=== PATIENT | male | born 1945 | race Caucasian/White ===

== ENCOUNTER 2022-01-29 04:23 | Day surgery (SDC) | payer OTHER ==
[2022-01-28 10:25] VITALS: BMI 26.6
[2022-01-29] MEDS ORDERED: LIDOCAINE HCL 2% 100 MG/5 ML DISP.SYRIN ONE (11:32)
[2022-01-29] MEDS ORDERED: KETOROLAC TROMETHAMINE 30 MG/1 ML VIAL ONE (11:32)
[2022-01-29] MEDS ORDERED: DEXAMETHASONE SOD PHOSPHATE 4 MG/1 ML VIAL ONE (11:32)
[2022-01-29] MEDS ORDERED: PROPOFOL 20 ML ONE (11:33)
[2022-01-29] MEDS ORDERED: MIDAZOLAM HCL 2 MG/2 ML SINGLE DOSE VIAL ONE (11:33)
[2022-01-29] MEDS ORDERED: ceFAZolin SODIUM 1 GM VIAL IVPB ONE (11:55)
[2022-01-29] MEDS ORDERED: BACITRACIN 15 GM TUBE TOPICAL OINTMENT TP ONE (12:18)
[2022-01-29] MEDS ORDERED: ONDANSETRON 4 MG/2 ML VIAL IVPUSH PRN (13:15)
[2022-01-29] MEDS ORDERED: oxyCODONE HCL 5 MG TABLET PO PRN ×2 (13:15)
[2022-01-29] MEDS ORDERED: PROMETHAZINE HCL 25 MG/1 ML VIAL IVPUSH PRN (13:15)
[2022-01-29] MEDS ORDERED: LACTATED RINGERS SOLUTION 1,000 ML IV SCH (13:15)
[2022-01-29] MEDS ORDERED: FENTANYL CITRATE/PF 50 MCG/ML VIAL ONE (13:59)
[2022-01-29 18:20] VITALS: BP 156/70; PULSE 60; TEMP 98
== END 2022-01-29 16:00 | disposition home or self-care (01) ==
LOC: JASU-SURG 04:23
PROVIDERS: ATTEND Urology
PROC: 0V503ZZ Destruction of Prostate, Percutaneous Approach (ICD-10-PCS; principal; 2022-01-29 12:00)
DX: C61 Malignant neoplasm of prostate (principal)
CPT/HCPCS: 55873; C2618; 94760